=== PATIENT | male | born 2000 | race Caucasian/White ===

== ENCOUNTER 2020-02-07 10:59 | Emergency (ER) | payer SELFPAY ==
[2020-02-07 11:07] VITALS: BP 151/105; PULSE 91; RESP 18; TEMP 35.9; O2SAT 100
--- NOTE | 2020-02-07 11:44 | ED.DENTAL ---
HPI - Dental/Oral General Chief complaint: Dental/Oral Stated complaint: Mouth Infection, Swelling Time Seen by Provider: 02/07/20 11:31 Source: patient Mode of arrival: ambulatory Limitations: no limitations History of Present Illness HPI Narrative: This is a 19-year-old male that presents to the emergency department for tooth ache since yesterday. Also reports redness and swelling around the area. Reports he has an appointment with the oral surgeon tomorrow. He finished a round of penicillin about a week ago for this tooth. Denies fevers. MD Complaint: tooth pain Location: Tooth # (7) Related Data Allergies Allergy/AdvReac Type Severity Reaction Status Date / Time No Known Allergies Allergy Mild Verified 02/07/20 11:09 Review of Systems Review of Systems: Narrative: CONSTITUTIONAL: Denies fever ENT: Reports dentalgia All systems reviewed & are unremarkable except as noted in HPI and below PMFSH Past Medical History Medical History (Updated 02/07/20 @ 11:47 by Arleth Carbajal PA-C) No active medical problems Exam Narrative: Exam Narrative: GENERAL: Well-appearing, well-nourished, and in no acute distress. HEAD: Normocephalic, atraumatic. EYES: EOMI. ENT: Mucous membranes moist. Oropharynx without tonsillar hypertrophy exudate or other lesions. Poor dentition. Several decayed teeth. Tooth #7 is tender to palpation with some surrounding erythema, no fluctuance noted to suggest abscess NECK: Supple. No adenopathy or masses. CHEST: Airway patent EXTREMITIES: Normal range of motion. No edema. SKIN: Warm, dry, no rash. NEURO: No focal deficits. Alert and oriented x3. PSYCH: Normal mood and affect Course Vital Signs Vital signs: Vital Signs Temperature 96.7 F L 02/07/20 11:07 Pulse Rate 91 02/07/20 11:07 Respiratory Rate 18 02/07/20 11:07 Blood Pressure 151/105 H 02/07/20 11:07 Pulse Oximetry 100 02/07/20 11:07 Temperature 96.7 F L 02/07/20 11:07 Pulse Rate 91 02/07/20 11:07 Respiratory Rate 18 02/07/20 11:07 Blood Pressure 151/105 H 02/07/20 11:07 Pulse Oximetry 100 02/07/20 11:07 MDM - Dental/Oral MDM Narrative Medical decision making narrative: Patient presents emergency department for toothache since yesterday. He is afebrile and nontoxic-appearing. No fluctuance or edema surrounding the tooth to suggest an abscess. Patient will be started on oral antibiotics and has follow-up with an oral surgeon tomorrow. He was given warnings to return to the ER Critical Care Time Critical Care Time Critical Care Time: No Discharge Plan Discharge Clinical Impression: Toothache Patient Disposition: Home, Self-Care Condition: Stable Instructions: Antibiotic Form, Toothache (ED) Additional Instructions: Return to the Emergency Department if you experience fever >101, increasing swelling and redness of your tooth, or any other symptoms that are concerning to you Take antibiotic as prescribed. Tylenol or Ibuprofen as needed for pain. You can apply a dab of clove oil to a Qtip and apply to the tooth to help numb the area Follow up with your oral surgeon Prescriptions: New amoxicillin-pot clavulanate [Augmentin] 875-125 mg tablet 1 tablet PO Q12H 7 Days Qty: 14 RF: 0 Follow-up/Referrals: PHYSICIAN,CONCHE OPERATOR [Primary Care Provider] -
[2020-02-07] MEDS: KETOROLAC (*BKC) 60 MG/2 ML VIAL IM (12:20)
== END 2020-02-07 12:26 | disposition home or self-care (01) ==
PROVIDERS: Emergency Provider Emergency Medicine
DX: K08.89 Other specified disorders of teeth and supporting structures (principal)
CPT/HCPCS: 96372; 99283; J1885

== ENCOUNTER 2020-02-07 20:48 | Emergency (ER) | payer SELFPAY ==
[2020-02-07 20:56] VITALS: BP 166/101; PULSE 72; RESP 15; TEMP 36.4; O2SAT 100
--- NOTE | 2020-02-07 21:27 | ED.DENTAL ---
HPI - Dental/Oral General Chief complaint: Dental/Oral Stated complaint: facial swelling tooth problem Time Seen by Provider: 02/07/20 20:57 Source: patient and family Mode of arrival: ambulatory Limitations: no limitations History of Present Illness HPI Narrative: Patient is a 19-year-old male who presented with dental pain this morning was sent home on Augmentin notes that he has since developed some swelling in the gum with concern for abscess patient has follow-up with oral surgeon in the near future patient notes moderate aching pain worse with eating denies any fever chills nausea vomiting or other complaints and is otherwise resting comfortably in the room upon arrival Related Data Allergies Allergy/AdvReac Type Severity Reaction Status Date / Time No Known Allergies Allergy Mild Verified 02/07/20 11:09 Review of Systems Review of Systems: All systems reviewed & are unremarkable except as noted in HPI and below PMFSH Past Medical History Medical History No active medical problems Social History Social History Gender identity (if verbalized by the patient): Male Exam Narrative: Exam Narrative: GENERAL: Well-appearing, well-nourished, and in no acute distress. HEAD: Normocephalic, atraumatic. EYES: PERRLA and EOMI. ENT: Nares clear, no rhinorrhea or epistaxis. Mucous membranes moist. Patient with swelling to the right upper incisor consistent with dental abscess floor of the mouth is soft uvula midline no trismus or drooling NECK: Supple. No adenopathy or masses. EXTREMITIES: Normal range of motion. No edema. SKIN: Warm, dry, no rash. NEURO: No focal deficits. Alert and oriented x3. PSYCH: Normal mood and affect. Course Course Emergency Course: Patient in the room aware of case findings treatment plan diagnosis agreeing to follow with dentistry Vital Signs Vital signs: Vital Signs Temperature 97.6 F 02/07/20 20:56 Pulse Rate 72 02/07/20 20:56 Respiratory Rate 15 02/07/20 20:56 Blood Pressure 166/101 H 02/07/20 20:56 Pulse Oximetry 100 02/07/20 20:56 Temperature 97.6 F 02/07/20 20:56 Pulse Rate 72 02/07/20 20:56 Respiratory Rate 15 02/07/20 20:56 Blood Pressure 166/101 H 02/07/20 20:56 Pulse Oximetry 100 02/07/20 20:56 Procedures Abscess I/D oral: Side (if applicable): right Local Anesthetic: none Technique: needle aspiration (18-gauge needle used to make single straight incision) Irrigation: No Packing used?: none I&D Results: Pus MDM - Dental/Oral MDM Narrative Medical decision making narrative: Paitents pain and complaint coupled with physical findings are consistant with dentalgia. There are no focal signs of space occupying lesions that are compromising to the ariway. The floor of the mouth is soft with no signs of Ludwigs Angina. Patient is without trismus or drooling and able to swallow secreations. Patient is felt appropriate for discharge home with dental follow up. Discharge Plan Discharge Clinical Impression: Dental abscess Patient Disposition: Home, Self-Care Condition: Stable Instructions: Antibiotic Form, Dental Abscess (ED) Additional Instructions: Follow-up with dentistry as planned Return if symptoms worsen or concerns or any increase in redness swelling pain fever over 100.5 vomiting or unable to open the mouth or swallow Follow patient education sheets Only take medications as Prescriptions: New chlorhexidine gluconate [Peridex] 0.12 % mouthwash 15 ml mucous membrane BID Qty: 1500 RF: 0 ibuprofen [IBU] 600 mg tablet 600 mg PO QID PRN (Reason: fever or pain) Qty: 7 RF: 0 No Action amoxicillin-pot clavulanate [Augmentin] 875-125 mg tablet 1 tablet PO Q12H 7 Days Qty: 14 RF: 0 Follow-up/Referrals: Dental Referral Line [Outside] [facility] [Outsid
[2020-02-07] MEDS: HYDROcodone/acetaminophen (*CRX) 5-325 MG TABLET 1 TAB PO (21:36)
== END 2020-02-07 21:49 | disposition home or self-care (01) ==
PROVIDERS: Emergency Provider Emergency Medicine
DX: K04.7 Periapical abscess without sinus (principal)
CPT/HCPCS: 41800; 99283; A9270

== ENCOUNTER 2020-02-15 18:09 | Emergency (ER) | payer OTHER, SELFPAY ==
--- NOTE | ~2020-02-15 | XR_ITS ---
EXAMINATION: XR humerus RT INDICATION: Right arm pain TECHNIQUE: Two views of the right humerus are obtained. COMPARISON: None available FINDINGS: There is no fracture, dislocation, or subluxation. The bones, soft tissues, and joint space s are normal. IMPRESSION: 1. No acute osseous abnormality. Reviewed, dictated and finalized at location A. GROUND SUPERVISOR
[2020-02-15 18:16] VITALS: BP 160/105; PULSE 98; RESP 18; TEMP 36.4; O2SAT 100
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
[2020-02-15] MEDS: IBUPROFEN 600 MG TABLET PO (20:20)
== END 2020-02-15 20:30 | disposition home or self-care (01) ==
PROVIDERS: Emergency Provider Emergency Medicine
DX: M25.511 Pain in right shoulder (principal); M25.521 Pain in right elbow; V49.50XA Passenger injured in collision with unspecified motor vehicles in traffic accident, initial encounter
CPT/HCPCS: 73060; 99283; A9270

== ENCOUNTER 2022-11-30 21:32 | Emergency (ER) | payer MEDICAID, SELFPAY ==
[2022-11-30 21:36] VITALS: BP 177/99; PULSE 82; RESP 14; TEMP 37.1; O2SAT 100
--- NOTE | 2022-12-01 01:21 | ED.DENTAL ---
HPI - Dental/Oral General Chief complaint: Dental/Oral Stated complaint: dental pain Time Seen by Provider: 12/01/22 00:26 Source: patient Mode of arrival: ambulatory Limitations: no limitations History of Present Illness HPI Narrative: Patient is a 22-year-old female who presents to the ED with left upper posterior molar dental pain. Patient reports he has 2 known infected teeth, # 15 and 16. He is scheduled to see a dentist 1 week from today to have the teeth removed. Yesterday into today, patient has had worsening pain throughout these teeth. He has been taking naproxen and Tylenol without relief. He is unable to get a sooner appointment due to his dentist. Denies any difficulty breathing or swallowing, trismus, drainage, fevers, nausea or vomiting. Related Data Allergies Allergy/AdvReac Type Severity Reaction Status Date / Time No Known Allergies Allergy Mild Verified 02/07/20 11:09 Review of Systems Review of Systems: CONSTITUTIONAL: Denies fever, chills, or sweats. ENT: See HPI. CARDIOVASCULAR: Denies chest pain. RESPIRATORY: Denies dyspnea. GASTROINTESTINAL: Denies abdominal pain, nausea, vomiting. All systems reviewed & are unremarkable except as noted in HPI and below PMFSH Past Medical History Medical History No active medical problems Social History Social History Gender identity (if verbalized by the patient): Male Exam Narrative: GENERAL: Well appearing, obese with BMI of 32.1, non-toxic, in no acute distress. HEAD: Normocephalic, atraumatic. ENT: Mucous membranes moist. No trismus. No stridor. Tenderness surrounding gumlines of teeth numbers 15 and 16, left posterior molars. Tooth #16 growing almost sideways along gum. Mild surrounding erythema. No focal fluctuance or areas of abscess. No posterior pharynx erythema. No tonsillar hypertrophy. Uvula midline NECK: Supple. No adenopathy, no masses. RESPIRATORY: Airway patent, respirations nonlabored. CARDIOVASCULAR: Regular rate and rhythm without murmurs, rubs, or gallops. Radial pulses 2+ and equal bilaterally. MUSCULOSKELETAL: Moves all extremities. Strength/ROM intact without gross deformities. SKIN: Warm, dry, normal color. No rashes. NEURO: A&O X3. Speech clear. Cranial nerves II-XII grossly intact. Steady gait. No ataxic movements. PSYCHIATRIC: Appropriate mood and affect. Normal interaction. Course Vital Signs Vital signs: Vital Signs Temperature 98.8 F 11/30/22 21:36 Pulse Rate 82 11/30/22 21:36 Respiratory Rate 14 11/30/22 21:36 Blood Pressure 177/99 H 11/30/22 21:36 Pulse Oximetry 100 11/30/22 21:36 Oxygen Delivery Room Air 11/30/22 21:36 Temperature 98.8 F 11/30/22 21:36 Pulse Rate 82 11/30/22 21:36 Respiratory Rate 14 11/30/22 21:36 Blood Pressure 177/99 H 11/30/22 21:36 Pulse Oximetry 100 11/30/22 21:36 Oxygen Delivery Room Air 11/30/22 21:36 MDM - Dental/Oral MDM Narrative Medical decision making narrative: Patient's pain is consistent with dental caries. There are no focal signs of space-occupying abscess. The patient is controlling secretions well without signs of airway compromise. Patient is felt reasonable for outpatient follow-up with dental evaluation. He has follow-up scheduled within the next 1 week. Will prescribe Augmentin and a few [place] for further management. Patient given return precautions. Discharged in stable condition. Medical Records Attestation: I reviewed the patient's medical records. Discharge Plan Discharge Clinical Impression: Dental caries, Toothache Patient Disposition: Home, Self-Care Condition: Stable Instructions: Antibiotic Form, Toothache (ED) Additional Instructions: Take antibiotics as prescribed. Continue Tylenol and ibuprofen as needed for pain. [place] as needed for more severe pain. Follow-
[2022-12-01] MEDS: HYDROcodone/acetaminophen (*CRX) 5-325 MG TABLET 1 TAB PO (01:27)
[2022-12-01] MEDS: AMOXICILLIN/CLAVULANATE K 875-125 MG TAB 1 TABLET PO (01:27)
[2022-12-01 01:50] VITALS: BP 154/86; PULSE 64; RESP 16; O2SAT 100
== END 2022-12-01 01:52 | disposition home or self-care (01) ==
LOC: ANHED 12-01 01:43
PROVIDERS: Emergency Provider Physician Assistant
DX: K08.89 Other specified disorders of teeth and supporting structures (principal); K02.9 Dental caries, unspecified
CPT/HCPCS: 99283; A9270